=== PATIENT | female | born 1985 | race Caucasian/White ===

== ENCOUNTER 2017-03-29 17:14 | Emergency (ER) | payer OTHER ==
[~2017-03-29] VITALS: Ht 180.3 cm; Wt 111.1 kg
--- NOTE | ~2017-03-29 | CR150 ---
[facility]. [facility] A Service of [facility] & [facility] RADIOLOGY TEXT RESULTS PATIENT: RODRICK STEIN LOCATION: SED : 83 UNIT #: [id number] AGE: [address]: Garrett Tobias MD SEX: F ORDER DR: [id number] [place] [id number] E MR#: [id number] Acc #: [id number] NAME: RODRICK STEIN : 1985 SEX: F STUDY DATE/TIME: 03/29/2017 17:48 UNIT: SED ROOM: STUDY DESCRIPTION: CR Hip Min 2 Views Lt Attending Physician: Garrett Tobias M.D. Ordering Physician: Garrett Tobias M.D. Primary Care Physician: Cira Miller M.D. MEDICAL IMAGING REPORT This report is preliminary unless electronic signature is present. EXAM Left hip, 2 views HISTORY Hip pain since yesterday. Injury while active in water sport. FINDINGS AP and oblique examination of the hip shows adequate mineralization of the bones and a normal anatomic relationship of the femoral head with the acetabulum. There are no hypertrophic changes, fractures, dislocation, or joint capsular distension. No radiopaque foreign body is present about the soft tissues of the hip. IMPRESSION Normal hip. Dictated by... Alexis Hi M.D. THIS IS AN ELECTRONICALLY VERIFIED REPORT Alexis Hi M.D. at 03/29/2017 11:23 PM DFL/psc TD: 03/29/2017 19:49 JOB #: [id number] MEDICAL IMAGING REPORT Page 1 of 1
[~2017-03-29 17:14] MED LIST: CLEOCIN PO; CORICIDIN HBP1 EAC2 PO; HYDROMET SYRUP480 ML PO; IBUPROFEN800 MG PO; LEXAPRO20 MG PO; LORTAB 5/500 TA1 TA1 PO; NILSTAT PO; NO MEDICATIONS; OMEPRAZOLE20 M1 PO; PREDNISONE PO; PREDNISONE50 MG PO; PROTONIX PO; PV NEURO VITE T1 TAB PO; TENORMIN25 MG PO; TESSALON PERLE100 M1 PO; TRAMADOL HCL50 M1 PO; XANAX0.5 MG PO; ZITHROMAX PO; ZITHROMAX500 MG PO; ZOFRAN ODT4 MG PO; ZOFRAN PO; ZYRTEC PO
== END 2017-03-29 18:44 | disposition home or self-care (01) ==
LOC: SED 17:14
DX: S39.011A Strain of muscle, fascia and tendon of abdomen, initial encounter (principal); K21.9 Gastro-esophageal reflux disease without esophagitis; F41.9 Anxiety disorder, unspecified; F32.9 Major depressive disorder, single episode, unspecified; F17.210 Nicotine dependence, cigarettes, uncomplicated; Z98.51 Tubal ligation status; Z90.49 Acquired absence of other specified parts of digestive tract; Z79.2 Long term (current) use of antibiotics; Z79.899 Other long term (current) drug therapy; Z88.0 Allergy status to penicillin; Z88.8 Allergy status to other drugs, medicaments and biological substances; Y93.16 Activity, rowing, canoeing, kayaking, rafting and tubing; Y92.830 Public park as the place of occurrence of the external cause
CPT/HCPCS: 73502; 99283